=== PATIENT | female | born 1995 | race Two or more races ===

== ENCOUNTER 2017-10-15 18:57 | Emergency (ER) | payer OTHER ==
[2017-10-15 19:12] VITALS: BMI 15.7
--- NOTE | 2017-10-15 19:12 | PDOC ---
Rapid Medical Evaluation Chief Complaint: Vaginal Bleeding Time Seen by Provider: 10/15/17 19:11 Medical Evaluation: Allergies Allergy/AdvReac Type Severity Reaction Status Date / Time No Known Allergies Allergy Verified 10/15/17 19:10 10/15/17 19:11 The patient presents with a chief complaint of: bleeding I have performed a brief in-person evaluation of this patient. Pertinent physical exam findings: vss I have ordered the following: labs The patient will proceed to the ED for further evaluation. 10/15/17 19:15
--- NOTE | 2017-10-15 19:48 | PDOC ---
History of Present Illness - General Chief Complaint: Vaginal Bleeding Stated Complaint: VAGINAL BLEEDING (12 WKS ) Time Seen by Provider: 10/15/17 19:11 - History of Present Illness Initial Comments: 10/15/17 19:47 22 yo at 13 wga w/ no significant pmh who p/w vaginal bleeding in . Pt. reports acute onset of dark, mucoid, vaginal discharge this evening. Also endorsed dull, migrating, lower abdominal discomfort ( now resolved), at time of vaginal discharge. No identifiable triggers or alleviators. Denies abdominal trauma. 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 Giovana Monaco with UTI ( 10/13/17). Antibitoics sent to pharmacy. Denies urinary complaints, or hematuria. Denies F/C, CP, cough, SOB, diarrhea, constipation, lightheadedness, weakness, sensory changes. Denies tobacco or alcohol use. Past History - Past Medical History Allergies/Adverse Reactions: Allergies Allergy/AdvReac Type Severity Reaction Status Date / Time No Known Allergies Allergy Verified 10/15/17 19:10 Home Medications: Ambulatory Orders NK [No Known Home Medication] 10/15/17 COPD: No - Suicide/Smoking/Psychosocial Hx Smoking History: Never smoked Review of Systems - Review of Systems Comments:: 10/15/17 19:47 GENERAL/CONSTITUTIONAL: No fever or chills. No weakness. HEAD, EYES, EARS, NOSE AND THROAT: No change in vision. No ear pain or discharge. No sore throat. CARDIOVASCULAR: No chest pain or shortness of breath RESPIRATORY: No cough, wheezing, or hemoptysis. GASTROINTESTINAL: No nausea, vomiting, diarrhea or constipation. GENITOURINARY: + Vaginal discharge. No dysuria, frequency, or change in urination. MUSCULOSKELETAL: No joint or muscle swelling or pain. No neck or back pain. SKIN: No rash NEUROLOGIC: No headache, vertigo, loss of consciousness, or change in strength/ sensation. ENDOCRINE: No increased thirst. No abnormal weight change HEMATOLOGIC/LYMPHATIC: No anemia, easy bleeding, or history of blood clots. ALLERGIC/IMMUNOLOGIC: No hives or skin allergy. *Physical Exam - Vital Signs Last Vital Signs Temp Pulse Resp BP Pulse Ox 98.2 F 83 18 104/70 98 10/15/17 19:10 10/15/17 19:10 10/15/17 19:10 10/15/17 19:10 10/15/17 19:10 - Physical Exam Comments: 10/15/17 19:47 GENERAL: Awake, alert, and fully oriented, in no acute distress HEAD: No signs of trauma, normocephalic, atraumatic EYES: PERRLA, EOMI, sclera anicteric, conjunctiva clear ENT:Hearing grossly normal, nares patent, oropharynx clear without exudates. Moist mucosa NECK: Normal ROM, supple, no lymphadenopathy, JVD, or masses LUNGS: No distress, speaks full sentences, clear to auscultation bilaterally HEART: Regular rate and rhythm, normal S1 and S2, no murmurs, rubs or gallops, peripheral pulses normal and equal bilaterally. ABDOMEN: Soft, nontender, normoactive bowel sounds. No guarding, no rebound, no rigidity. No masses. Neg CVA pr suprapubic ttp. : Normal appearing external genitalia. Absent blood in vaginal vault. Large volume milky white-maynard discharge. Cervical os closed and non erythematous. Absent CMT on BM. EXTREMITIES : Normal inspection, Normal range of motion, no edema. No clubbing or cyanosis. SKIN: Warm, Dry, normal turgor, no rashes or lesions noted ED Treatment Course - LABORATORY CBC & Chemistry Diagram: 10/15/17 19:40 Medical Decision Making - Medical Decision Making 10/15/17 20:09 22 yo at 13 wga with no significant pmh who presents acute onset of dark, mucoid, vaginal discharge this evening asx. w/ dull, migrating, lower abdominal discomfort ( now resolved). . No identifiable triggers or alleviators. Denies abdominal trauma. Denies F/C, CP, cough, SOB, diarrhea, constipation, urinary complaints, hematuria, BPR, lightheadedness, weakness, sensory changes. Recently seen at [facility] ORGANIZATIONAL PSYCHOLOGIST Dr. Giovana Monaco with UTI ( 10/13/17). Physical exam with milky maynard-white discharge in vaginal vault. Cervical os closed. HDS. Will assess for causes of vaginal bleeding and abdominal pain in . Will consider placenta previa, ectopic , threatened . Pt. with s/s of BV. ED Course: CBC, T&S, UA, BHCG Transvaginal U/S 10/15/17 20:58 HC.2 CBC: Unremarkable 10/15/17 21:49 Tranvaginal U/S: Live intrauterine of 13w3d. Keflex in ED. Will d/c with return precautions and advised f/u with Gizzard Puller. *DC/Admit/Observation/Transfer Diagnosis at time of Disposition: Vaginal discharge during in second trimester - Discharge Dispostion Disposition: HOME Condition at time of disposition: Stable Admit: No - Referrals Referrals: Jacinda Akhtar [Primary Care Provider] - - Patient Instructions Additional Instructions: Please return to the emergency department with any new or worsening symptoms or concerns. Please follow up with your primary care physician within 72 hours. - Post Discharge Activity - Attestations Physician Attestion: 10/15/17 19:47 I attest to the information provided in this note.
--- NOTE | 2017-10-15 20:13 | PDOC ---
Attending Attestation - HPI HPI: 10/15/17 20:18 The patient is a 13 weeks 22 year old female, with no significant past medical history, who presents to the emergency department with, vaginal bleeding for approx. one day. The patient states that yesterday evening she experienced a dark mucoid vaginal discharge and reports a lower abdominal discomfort. 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 The patient denies any recent falls or trauma. She denies recent fevers, chills, headache or dizziness. She denies recent nausea, vomit, diarrhea or constipation. She denies recent dysuria, frequency, urgency or hematuria. She denies recent chest pain or shortness of breath. Allergies: NKA Documentation prepared by Abrahan Mckenna, acting as biomedical equipment tech for Alvin Keita DO. <Abrahan Mckenna - Last Filed: 10/15/17 20:18> - Resident Resident Name: Shola Solis - ED Attending Attestation I have performed the following: I have examined & evaluated the patient, The case was reviewed & discussed with the resident, I agree w/resident's findings & plan, Exceptions are as noted - Physicial Exam PE: 10/15/17 21:43 *Physical Exam General Appearance: Yes: Appropriately Dressed. No: Apparent Distress, Intoxicated HEENT: positive: EOMI, DUYEN, Normal ENT Inspection, Normal Voice, TMs Normal, Pharynx Normal. negative: Pale Conjunctivae, Photophobia, Scleral Icterus (R), Scleral Icterus (L) Neck: positive: Trachea midline, Normal Thyroid, Supple. negative: Tender, Rigid, Carotid bruit, Stridor, Lymphadenopathy (R), Lymphadenopathy (L), Thyromegaly Respiratory/Chest: positive: Lungs Clear, Normal Breath Sounds. negative: Chest Tender, Respiratory Distress, Accessory Muscle Use, Labored Respiration, RES, Crackles, Rales, Rhonchi, Stridor, Wheezing, Dullness Cardiovascular: positive: Regular Rhythm, Regular Rate, S1, S2. negative: Edema , JVD, Murmur, Bradycardia, Tachycardia Vascular Pulses: Dorsalis-Pedis (R): 2+, Doralis-Pedis (L): 2+ Gastrointestinal/Abdominal: positive: Normal Bowel Sounds, Flat, Soft. negative : Tender, Organomegaly, Pulsatile Mass, Increased Bowel Sounds, Decreased BS, Distended, Guarding, Rebound, Hernia, Hepatomegaly, Spleenomegaly Lymphatic: negative: Adenopathy, Tenderness Musculoskeletal: positive: Normal Inspection. negative: CVA Tenderness, Decreased Range of Motion Extremity: positive: Normal Capillary Refill, Normal Inspection, Normal Range of Motion, Pelvis Stable. negative: Tender, Pedal Edema, Swelling, Erythema Integumentary: positive: Normal Color, Dry, Warm. negative: Cyanotic, Erythema , Jaundice, Rash Neurologic: positive: bar roller II-XII NML intact, Fully Oriented, Alert, Normal Mood/ Affect, Motor Strength 5/5. negative: EOM Palsy, Facial Droop, Sensory Deficit - Medical Decision Making 10/16/17 19:25 Pt treated and released <Alvin Keita - Last Filed: 10/16/17 19:27> Discharge Disposition <Abrahan Mckenna - Last Filed: 10/15/17 20:18> - Discharge Dispostion Admit: No <Alvin Keita - Last Filed: 10/16/17 19:27> - Diagnosis UTI (urinary tract infection), Vaginal discharge during in second trimester Qualifiers: Weeks of gestation: 13 weeks Qualified Code(s): Z3A.13 - 13 weeks gestation of - Discharge Dispostion Disposition: HOME Condition at time of disposition: Stable - Referrals Referrals: Jacinda Akhtar [Primary Care Provider] - - Patient Instructions Additional Instructions: Please return to the emergency department with any new or worsening symptoms or concerns. Please follow up with your primary care physician within 72 hours. TAke antibiotic you have been prescribed. Follow up with your doctor - Post Discharge Activity
[2017-10-15 20:19] LABS: BASO % 0.4 % (0-2.0); EOS % 1.8 % (0-4.5); HEMATOCRIT 35.9 % (32.4-45.2); HEMOGLOBIN 12.7 GM/dL (10.7-15.3); LYMPH % 25.3 % (8-40); MCH 31.4 pg (25.7-33.7); MCHC 35.5 g/dl (32.0-36.0); MEAN CELL VOLUME 88.7 fl (80-96); MEAN PLT VOLUME 9.1 fl (7.5-11.1); MONO % 6.1 % (3.8-10.2); NEUT % 66.4 % (42.8-82.8); PLATELET COUNT 224 K/MM3 (134-434); RBC 4.05 M/mm3 (3.60-5.2)
[2017-10-15 20:20] LABS: URINE APPEARANCE SLCLOUDY; URINE BILIRUBIN NEGATIVE (NEGATIVE); URINE BLOOD 1+ (NEGATIVE); URINE COLOR LTYELLOW; URINE GLUCOSE (UA) NEGATIVE (NEGATIVE); URINE KETONE NEGATIVE (NEGATIVE); URINE NITRITE NEGATIVE (NEGATIVE); URINE PROTEIN NEGATIVE (NEGATIVE); URINE UROBILINOGEN NEGATIVE mg/dL (0.2-1.0)
[2017-10-15 20:35] LABS: URINE LEUK ESTERASE 2+ (NEGATIVE)
[2017-10-15 20:53] LABS: EPI CELLS MODERATE /HPF (FEW); URINE BACTERIA FEW /hpf (NONE SEEN); URINE HYALINE CAST 1 /lpf; URINE MUCUS RARE
[2017-10-15] MEDS ORDERED: CEPHALEXIN MONOHYDRATE 500 MG CAPSULE (UD) PO ONE (21:50)
[2017-10-15] MEDS ORDERED: CEPHALEXIN MONOHYDRATE 250 MG CAPSULE (FP) ONE (21:59)
[2017-10-15 22:11] VITALS: BP 110/72; PULSE 84; TEMP 98
== END 2017-10-15 22:11 | disposition home or self-care (01) ==
LOC: JER 18:57
DX: O26.891 Other specified pregnancy related conditions, first trimester (principal); Z3A.13 13 weeks gestation of pregnancy; N89.8 Other specified noninflammatory disorders of vagina
CPT/HCPCS: 36415; 76801-TC; 81003; 81015; 84702; 85025; 86850; 86900; 86901; 99283-25

== ENCOUNTER 2018-02-08 18:04 | Emergency (ER) | payer OTHER ==
[2018-02-08 18:18] VITALS: BP 101/65; PULSE 100; TEMP 98.4; BMI 23.8
--- NOTE | 2018-02-08 18:52 | PDOC ---
History of Present Illness - General Chief Complaint: Bite Stated Complaint: ALLERGIC REACTION (7 MONTHS ) Time Seen by Provider: 02/08/18 18:26 History Source: Patient, Spouse Exam Limitations: Clinical Condition - History of Present Illness Initial Comments: 02/08/18 18:46 Patient 7 months present with with complains of itchy red rash o b/l upper and lower extremities which she believes from mosquito bite. Patient report taking claritin but itching and redness still persists Timing/Duration: other (2 days) Severity: mild Modifying Factors: worse with: other (scratching ) Associated Symptoms: reports: rash. denies: fever/chills, headaches, malaise Aspirin Received prior to arrival: Yes: no aspirin today Past History - Past Medical History Allergies/Adverse Reactions: Allergies Allergy/AdvReac Type Severity Reaction Status Date / Time No Known Allergies Allergy Verified 02/08/18 18:16 Home Medications: Ambulatory Orders Hydrocortisone 2.5% Topical Cr [Anusol-Hc -] 1 applic TP BID PRN 7 Days #1 tube 02/08/18 COPD: No - Suicide/Smoking/Psychosocial Hx Smoking History: Never smoked Have you smoked in the past 12 months: No Information on smoking cessation initiated: No Hx Alcohol Use: No Drug/Substance Use Hx: No Substance Use Type: None Review of Systems - Review of Systems Able to Perform ROS?: Yes Is the patient limited Slovenian proficient: No Constitutional: No: Chills, Diaphoresis, Fever, Loss of Appetite, Malaise, Night Sweats, Weakness, Weight Stable, Unintentional Wgt. Loss, Unexplained wgt Loss, Other HEENTM: No: Eye Pain, Blurred Vision, Tearing, Recent change in vision, Double Vision, Cataracts, Ear Pain, Ocular Prothesis, Ear Discharge, Nose Pain, Nose Congestion, Tinnitus, Nose Bleeding, Hearing Loss, Throat Pain, Throat Swelling , Mouth Pain, Dental Problems, Difficulty Swallowing, Mouth Swelling, Other Respiratory: No: Cough, Orthopnea, Shortness of Breath, SOB with Exertion, SOB at Rest, Stridor, Wheezing, Productive cough, Hemoptysis, Other Cardiac (ROS): No: Chest Pain, Edema, Irregular Heart Rate, Lightheadedness, Palpitations, Syncope, Chest Tightness, Other ABD/GI: No: Symptoms Reported Musculoskeletal: No: Back Pain, Gout, Joint Pain, Joint Swelling, Muscle Pain, Muscle Weakness, Neck Pain, Joint Stiffness, Other Integumentary: Yes: Pruritus (to rash areas), Rash (b/l arms and lower legs) Neurological: No: Headache, Numbness, Paresthesia, Pre-Existing Deficit, Seizure , Tingling, Tremors, Weakness, Unsteady Gait, Ataxia, Dizziness, Other Psychiatric: No: Anxiety, Depression, Frequent Crying, Stressors, Sleep Pattern Change, Emotional Problems, Mood Swings, Change in Appetite, Other Hematologic/Lymphatic: No: Anemia, Blood Clots, Easy Bleeding, Easy Bruising, Bleeding Diathesis, Lymph Node Abnormalities, Swollen Glands, Other All Other Systems: Reviewed and Negative *Physical Exam - Vital Signs Last Vital Signs Temp Pulse Resp BP Pulse Ox 98.4 F 100 H 16 101/65 100 02/08/18 18:16 02/08/18 18:16 02/08/18 18:16 02/08/18 18:16 02/08/18 18:16 - Physical Exam General Appearance: Yes: Nourished, Appropriately Dressed. No: Apparent Distress HEENT: positive: DUYEN, Normal ENT Inspection, TMs Normal, Pharynx Normal Neck: positive: Trachea midline, Supple Respiratory/Chest: positive: Lungs Clear, Normal Breath Sounds. negative: Respiratory Distress, Accessory Muscle Use Cardiovascular: positive: Regular Rhythm, Regular Rate, S1, S2 Gastrointestinal/Abdominal: positive: Normal Bowel Sounds Musculoskeletal: positive: Normal Inspection Extremity: positive: Normal Capillary Refill Integumentary: positive: Rash (multiple localized erythematous reaction to b/l arms and lower legs w/o excorations ) Neurologic: positive: equipment sterilizer II-XII NML intact, Fully Oriented, Normal Mood/Affect , Normal Response Medical Decision Making - Medical Decision Making 02/08/18 19:01 Patient 7month with localized rash with pruritus. likely allergic reaction to insect bite. stable for home discharge with topical hydrocortisone *DC/Admit/Observation/Transfer Diagnosis at time of Disposition: Dermatitis Insect bite Qualifiers: Encounter type: initial encounter Qualified Code(s): W57.XXXA - Bitten or stung by nonvenomous insect and other nonvenomous arthropods, initial encounter - Discharge Dispostion Disposition: HOME Condition at time of disposition: Good Decision to Admit order: No - Prescriptions Prescriptions: Hydrocortisone 2.5% Topical Cr [Anusol-Hc -] 1 applic TP BID PRN 7 Days #1 tube PRN Reason: rash - Referrals - Patient Instructions Printed Discharge Instructions: DI for Insect Bites and Stings Additional Instructions: apply prescribed cream twice/ day to rash . follow-up with PCP - Post Discharge Activity
== END 2018-02-08 19:00 | disposition home or self-care (01) ==
LOC: JERFT 18:04
DX: O26.893 Other specified pregnancy related conditions, third trimester (principal); L30.9 Dermatitis, unspecified; Z3A.28 28 weeks gestation of pregnancy
CPT/HCPCS: 99281-25

== ENCOUNTER 2018-09-22 14:13 | Emergency (ER) | payer SELFPAY ==
--- NOTE | 2018-09-22 14:18 | PDOC ---
Rapid Medical Evaluation Medical Evaluation: Allergies Allergy/AdvReac Type Severity Reaction Status Date / Time No Known Allergies Allergy Verified 02/08/18 18:16 I have performed a brief in-person evaluation of this patient. The patient presents with a chief complaint of: No sig pmh; RLQ abd pain from yesterday with nausea and constipation; had small BM today. Denies vomiting, diarrhea, urinary complaints. Denies prior abd surgeries Pertinent physical exam findings: +TTP along RLQ I have ordered the following: Labs The patient will proceed to the ED for further evaluation. 09/22/18 14:15 Discharge Disposition - Discharge Dispostion Condition at time of disposition: Stable - Referrals - Patient Instructions - Post Discharge Activity
[2018-09-22 14:19] VITALS: BP 127/86; PULSE 104; TEMP 98.1; BMI 19.2
[2018-09-22 14:41] LABS: BASO % 0.5 % (0-2.0); EOS % 1.1 % (0-4.5); HEMOGLOBIN 14.9 GM/dL (10.7-15.3); LYMPH % 12.7 % (8-40); MCH 31.8 pg (25.7-33.7); MCHC 35.5 g/dl (32.0-36.0); MEAN CELL VOLUME 89.5 fl (80-96); MEAN PLT VOLUME 8.9 fl (7.5-11.1); MONO % 8.8 % (3.8-10.2); NEUT % 76.9 % (42.8-82.8); PLATELET COUNT 222 K/MM3 (134-434); WHITE BLOOD COUNT 6.9 K/mm3 (4.0-10.0)
[2018-09-22 14:46] LABS: URINE APPEARANCE CLEAR; URINE BILIRUBIN NEGATIVE (<2.0 mg/dL); URINE COLOR LTYELLOW; URINE GLUCOSE (UA) NEGATIVE (NEGATIVE); URINE KETONE NEGATIVE (NEGATIVE); URINE LEUK ESTERASE NEGATIVE (NEGATIVE); URINE NITRITE NEGATIVE (NEGATIVE); URINE PROTEIN NEGATIVE (NEGATIVE); URINE UROBILINOGEN NEGATIVE mg/dL (0.2-1.0)
[2018-09-22 15:05] LABS: HCG,QUALITATIVE URINE Negative
[2018-09-22 15:19] LABS: ALBUMIN 4.4 g/dl (3.4-5.0); ALK PHOS 83 U/L (45-117); ANION GAP 7 MMOL/L (8-16); BILIRUBIN,TOTAL 0.6 mg/dL (0.2-1); BLOOD UREA NITROGEN 10 mg/dL (7-18); CALCIUM 9.1 mg/dL (8.5-10.1); CHLORIDE 103 mmol/L (98-107); CO2 28 mmol/L (21-32); CREATININE 0.6 mg/dL (0.55-1.3); GLUCOSE,RANDOM 83 mg/dL (74-106); POTASSIUM 3.9 mmol/L (3.5-5.1); SGOT/AST 22 U/L (15-37); SGPT/ALT 18 U/L (13-61); SODIUM 138 mmol/L (136-145); TOT PROT 8.8 g/dl (6.4-8.2)
[2018-09-22] MEDS ORDERED: ACETAMINOPHEN 1000 MG/100 ML VIAL (NON FORMULARY) IVPB ONE (17:41)
[2018-09-22] MEDS ORDERED: SODIUM CHLORIDE 1,000 ML IV STA (17:41)
[2018-09-22] MEDS ORDERED: ONDANSETRON 4 MG/2 ML VIAL IVPUSH ONE (17:41)
[2018-09-22] MEDS ORDERED: ACETAMINOPHEN INJECTION 100 ML IVPB ONE (18:12)
[2018-09-22] MEDS ORDERED: ONDANSETRON 4 MG/2 ML VIAL ONE (18:12)
--- NOTE | 2018-09-22 19:42 | PDOC ---
History of Present Illness - General Chief Complaint: Pain, Acute Stated Complaint: RT LOWER ABD PAIN Time Seen by Provider: 09/22/18 14:15 History Source: Patient Exam Limitations: No Limitations - History of Present Illness Travel History: No Initial Comments: 09/22/18 17:52 23-year-old female with no past medical history presents to ED with complaints of 3 days of constipation associated lower abdominal cramping and nausea with decreased appetite. Patient states is currently nursing a 5-month-old but denies any fever, chills urinary complaints or recent illness. Patient states has not had her menses since childbirth secondary to nursing but denies feelings of Timing/Duration: reports: constant Quality: reports: mild, cramping Abdominal Pain Onset Location: reports: RLQ, LLQ, suprapubic (mid) Pain Radiation: reports: no radiation Activities at Onset: reports: none Aggravating Factors: improves with: None Alleviating Factors: improves with: None Past History - Travel Traveled outside of the country in the last 30 days: No Close contact w/someone who was outside of country & ill: No - Past Medical History Allergies/Adverse Reactions: Allergies Allergy/AdvReac Type Severity Reaction Status Date / Time No Known Allergies Allergy Verified 02/08/18 18:16 Home Medications: Ambulatory Orders Hydrocortisone 2.5% Topical Cr [Anusol-Hc -] 1 applic TP BID PRN 7 Days #1 tube 02/08/18 COPD: No - Immunization History Immunization Up to Date: No - Suicide/Smoking/Psychosocial Hx Smoking History: Never smoked Have you smoked in the past 12 months: No Information on smoking cessation initiated: No Hx Alcohol Use: No Drug/Substance Use Hx: No Substance Use Type: None Patient Lives Alone: No Lives with/in: spouse/SO Review of Systems - Review of Systems Able to Perform ROS?: No Is the patient limited Romanian proficient: No Constitutional: No: Symptoms Reported HEENTM: No: Symptoms Reported Respiratory: No: Symptoms reported Cardiac (ROS): No: Symptoms Reported ABD/GI: Yes: Constipated (x 3 days), Nausea, Poor Appetite, Vomiting, Abdominal cramping. No: Poor Fluid Intake : No: Symptoms Reported Musculoskeletal: No: Symptoms Reported Integumentary: No: Symptoms Reported Neurological: No: Headache, Weakness Endocrine: No: Symptoms Reported Hematologic/Lymphatic: No: Symptoms Reported *Physical Exam - Vital Signs Last Vital Signs Temp Pulse Resp BP Pulse Ox 98.1 F 104 H 18 127/86 99 09/22/18 14:16 09/22/18 14:16 09/22/18 14:16 09/22/18 14:16 09/22/18 14:16 - Physical Exam General Appearance: Yes: Nourished, Appropriately Dressed. No: Apparent Distress HEENT: negative: Pale Conjunctivae Neck: positive: Normal Thyroid. negative: Supple Respiratory/Chest: positive: Lungs Clear, Normal Breath Sounds. negative: Respiratory Distress, Accessory Muscle Use Cardiovascular: positive: Regular Rhythm, Tachycardia. negative: Murmur Gastrointestinal/Abdominal: positive: Normal Bowel Sounds, Soft, Tenderness ( mid suprapubic). negative: Distended, Guarding, Rebound, Hernia, Mass Extremity: positive: Normal Capillary Refill. negative: Pedal Edema Integumentary: positive: Normal Color, Warm, Moist Neurologic: positive: Motor Strength 5/5 (ambulatory) Moderate Sedation - Procedure Monitoring Vital Signs: Procedure Monitoring Vital Signs Temperature 98.1 F 09/22/18 14:16 Pulse Rate 104 H 09/22/18 14:16 Respiratory Rate 18 09/22/18 14:16 Blood Pressure 127/86 09/22/18 14:16 O2 Sat by Pulse Oximetry (%) 99 09/22/18 14:16 ED Treatment Course - LABORATORY CBC & Chemistry Diagram: 09/22/18 14:30 09/22/18 14:30 - ADDITIONAL ORDERS Additional order review: Laboratory Results 09/22/18 09/22/18 14:30 14:30 Sodium 138 Potassium 3.9 Chloride 103 Carbon Dioxide 28 Anion Gap 7 L BUN 10 Creatinine 0.6 Creat Clearance w eGFR > 60 Random Glucose 83 Calcium 9.1 Total Bilirubin 0.6 AST 22 ALT 18 Alkaline Phosphatase 83 Total Protein 8.8 H Albumin 4.4 Urine Color Ltyellow Urine Appearance Clear Urine pH 5.0 D Ur Specific [place] 1.018 Urine Protein Negative Urine Glucose (UA) Negative Urine Ketones Negative Urine Blood Negative Urine Nitrite Negative Urine Bilirubin Negative Urine Urobilinogen Negative Ur Leukocyte Esterase Negative Urine HCG, Qual Negative 09/22/18 14:30 RBC 4.70 MCV 89.5 MCHC 35.5 RDW 13.0 MPV 8.9 Neutrophils % 76.9 Lymphocytes % 12.7 D Monocytes % 8.8 Eosinophils % 1.1 Basophils % 0.5 - RADIOLOGY Radiology Studies Ordered: Category Date Time Status PELVIC / BLADDER US [US] Stat Ultrasound 09/22/18 17:41 Ordered TRANSVAGINAL ULTRASOUND US [US] Stat Ultrasound 09/22/18 17:41 Ordered - Medications Given in the ED: ED Medications Discontinued Medications Generic Name Dose Route Start Last Admin Trade Name Nila PRN Reason Stop Dose Admin Acetaminophen 1,000 mg 09/22/18 17:41 09/22/18 18:19 Ofirmev Injection - IVPB 09/22/18 17:42 1,000 mg ONCE ONE Administration Sodium Chloride 1,000 mls @ 1,000 mls/hr 09/22/18 17:41 09/22/18 18:19 Normal Saline - IV 09/22/18 18:40 1,000 mls/hr ASDIR STA Administration Ondansetron HCl 4 mg 09/22/18 17:41 09/22/18 18:19 Zofran Injection IVPUSH 09/22/18 17:42 4 mg ONCE ONE Administration Medical Decision Making - Medical Decision Making 09/22/18 17:54 Chief complaint: constipation 3 days nausea with one episode of vomiting along with poor by mouth intake and lower abdominal cramping. Exam : suprapubic tenderness slightly tachycardic upon arrival no right lower quadrant tenderness Plan: Labs, urine, ultrasound IV fluids and IV Tylenol along with Zofran 09/22/18 19:55 09/22/18 19:55 Laboratory Tests 09/22/18 09/22/18 09/22/18 14:30 14:30 14:30 WBC 6.9 Hgb 14.9 Hct 42.0 D Neutrophils % 76.9 Sodium 138 Potassium 3.9 Chloride 103 Carbon Dioxide 28 Anion Gap 7 L BUN 10 Creatinine 0.6 Random Glucose 83 Calcium 9.1 Total Bilirubin 0.6 AST 22 ALT 18 Alkaline Phosphatase 83 Total Protein 8.8 H Albumin 4.4 Urine Nitrite Negative Urine Bilirubin Negative Urine HCG, Qual Negative 09/22/18 19:56 Ultrasound shows unremarkable several subcentimeter follicles bilaterally. No evidence of ovarian torsion noted there is no free intraperitoneal fluid with visualized lower pelvis. patient states fbetter and requesting to eat. Patient states feeling better and requesting to eat. Patient be discharged home with Zofran and strict instructions to return to ED if she develops fever, severe abdominal pain greater in the right lower quadrant or inability to eat *DC/Admit/Observation/Transfer Diagnosis at time of Disposition: Lower abdominal pain - Discharge Dispostion Disposition: HOME Condition at time of disposition: Improved - Referrals - Patient Instructions Printed Discharge Instructions: DI for Abdominal Pain-Adult Additional Instructions: at this time your labs urine and ultrasound were negative for acute findings. I recommend taking Zofran for nausea and Motrin or Tylenol for discomfort. I also recommended return to ED if you develop severe abdominal pain, vomiting, fever or inability to tolerate by mouth - Post Discharge Activity
== END 2018-09-22 21:22 | disposition home or self-care (01) ==
LOC: JER 14:13
PROC: 3E033NZ Introduction of Analgesics, Hypnotics, Sedatives into Peripheral Vein, Percutaneous Approach (ICD-10-PCS; principal; 2018-09-22)
PROC: 3E033GC Introduction of Other Therapeutic Substance into Peripheral Vein, Percutaneous Approach (ICD-10-PCS; 2018-09-22)
DX: R10.30 Lower abdominal pain, unspecified (principal)
CPT/HCPCS: 36415; 76830-TC; 76856-TC; 80053; 81003; 84703; 85025; 99283-25; J0131; J7030

== ENCOUNTER 2018-11-14 13:18 | Emergency (ER) | payer OTHER ==
[2018-11-14 13:24] VITALS: BP 140/74; TEMP 97.8; BMI 18.9
--- NOTE | 2018-11-14 13:54 | PDOC ---
History of Present Illness - General History Source: Patient - History of Present Illness Timing/Duration: reports: changing over time <Manav Humphreys - Last Filed: 11/14/18 14:51> <Yuliya Cabral - Last Filed: 11/14/18 18:42> - General Chief Complaint: Vaginal Bleeding Stated Complaint: VAGINAL BLEEDING Time Seen by Provider: 11/14/18 13:48 Past History - Past Medical History COPD: No - Immunization History Immunization Up to Date: No - Suicide/Smoking/Psychosocial Hx Smoking History: Never smoked Have you smoked in the past 12 months: No Hx Alcohol Use: No Drug/Substance Use Hx: No Substance Use Type: None <Manav Humphreys - Last Filed: 11/14/18 14:51> <Yuliya Cabral - Last Filed: 11/14/18 18:42> - Past Medical History Allergies/Adverse Reactions: Allergies Allergy/AdvReac Type Severity Reaction Status Date / Time No Known Allergies Allergy Verified 11/14/18 13:23 Home Medications: Ambulatory Orders Hydrocortisone 2.5% Topical Cr [Anusol-Hc -] 1 applic TP BID PRN 7 Days #1 tube 02/08/18 Ondansetron HCl [Zofran] 4 mg PO TID PRN #12 tablet 09/22/18 Review of Systems - Review of Systems Constitutional: No: Chills, Fever, Weakness ABD/GI: No: Nausea, Vomiting, Abdominal cramping : No: Dysuria, Flank Pain <Manav Humphreys - Last Filed: 11/14/18 14:51> *Physical Exam - Vital Signs Last Vital Signs Temp Pulse Resp BP Pulse Ox 97.8 F 92 H 18 140/74 98 11/14/18 13:19 11/14/18 13:19 11/14/18 13:19 11/14/18 13:19 11/14/18 13:19 - Physical Exam General Appearance: Yes: Appropriately Dressed. No: Apparent Distress HEENT: positive: Normal Voice Neck: positive: Supple Respiratory/Chest: negative: Respiratory Distress Gastrointestinal/Abdominal: positive: Soft. negative: Tender Musculoskeletal: negative: CVA Tenderness Integumentary: positive: Dry, Warm Neurologic: positive: Fully Oriented, Alert, Normal Mood/Affect <aMnav Humphreys Last Filed: 11/14/18 14:51> - Vital Signs Last Vital Signs Temp Pulse Resp BP Pulse Ox 97.8 F 86 18 140/74 98 11/14/18 13:19 11/14/18 15:01 11/14/18 13:19 11/14/18 13:19 11/14/18 13:19 <Yuliya Cabral - Last Filed: 11/14/18 18:42> ED Treatment Course - ADDITIONAL ORDERS Additional order review: Laboratory Results 11/14/18 14:14 Urine HCG, Qual Negative <Yuliya Cabral - Last Filed: 11/14/18 18:42> Medical Decision Making - Medical Decision Making 11/14/18 14:52 23-year-old female, s/p 6 months ago w/ placement of IUD on 10/15/18 in [place] where patient resides, currently visiting the [facility] on a student visa and here complaining that her period came early 5 days ago. Was bleeding heavily initially but not now. No abdominal pain, nausea, vomiting, fever, chills or dysuria. See exam Irregular vag bleed S/p copper IUD placement 1 month Stable and well nancy w/ benign abd Upreg neg here -dc w/ [facility] <PetrManav - Last Filed: 11/14/18 14:51> *DC/Admit/Observation/Transfer <PetrManav - Last Filed: 11/14/18 14:51> - Attestations Physician Attestion: I reviewed the case with the mid-level practitioner and agree with the mid- level practitioner's assessment, diagnosis and disposition. <Yuliya Cabral - Last Filed: 11/14/18 18:42> Diagnosis at time of Disposition: Irregular bleeding - Discharge Dispostion Disposition: HOME Condition at time of disposition: Good - Referrals Referrals: Jacinda Akhtar [Primary Care Provider] - - Patient Instructions Additional Instructions: Copper IUD's can have side effects for the first 2-3 months after placement. Common side effects are mucous appearing discharge and irregular, heavier and longer periods. These side effects usually diminish after the first several months. If the adjustment period lasts longer, please follow-up with your [facility] for further evaluation - Post Discharge Activity
[2018-11-14 15:01] VITALS: PULSE 86
== END 2018-11-14 15:13 | disposition home or self-care (01) ==
LOC: JER 13:18
DX: N92.6 Irregular menstruation, unspecified (principal)
CPT/HCPCS: 84703; 99282-25

== ENCOUNTER 2020-01-18 17:57 | Emergency (ER) | payer OTHER ==
[2020-01-18 18:04] VITALS: BP 107/72; PULSE 95; BMI 20.8
[2020-01-18] MEDS ORDERED: IBUPROFEN 400 MG TABLET (FP) PO ONE ×2 (18:20→18:21)
== END 2020-01-18 18:25 | disposition home or self-care (01) ==
LOC: JERFT 17:57
DX: S90.122A Contusion of left lesser toe(s) without damage to nail, initial encounter (principal); W22.8XXA Striking against or struck by other objects, initial encounter
CPT/HCPCS: 73630-TC-LT; 99283-25

== ENCOUNTER 2020-03-30 01:53 | Emergency (ER) | payer OTHER ==
--- NOTE | 2020-03-30 02:10 | PDOC ---
History of Present Illness - General Chief Complaint: Psychiatric Stated Complaint: PANIC ATTACK Time Seen by Provider: 03/30/20 02:09 History Source: Patient Exam Limitations: No Limitations - History of Present Illness Initial Comments: 03/30/20 02:27 25y previously healthy F presenting w sudden onset SOB, anxiety, upper back tightness 1hr ago while arguing with . Also stressed out because 2yr daughter kept her up for the last 3 days. Never experienced this before. Not on OCP, no recent travel. Denies fever, n/v, cough, chest pain, leg swelling. Past History - Medical History Allergies/Adverse Reactions: Allergies Allergy/AdvReac Type Severity Reaction Status Date / Time No Known Allergies Allergy Verified 03/30/20 02:12 Home Medications: Ambulatory Orders Hydrocortisone 2.5% Topical Cr [Anusol-Hc -] 1 applic TP BID PRN 7 Days #1 tube 02/08/18 Ondansetron HCl [Zofran] 4 mg PO TID PRN #12 tablet 09/22/18 Docusate Sodium [Colace] 100 mg PO BID #30 capsule 12/29/19 Ibuprofen 600 mg PO Q8H PRN #20 tablet 01/18/20 COPD: No - Immunization History Immunization Up to Date: No - Psycho-Social/Smoking History Smoking History: Never smoked Have you smoked in the past 12 months: No Review of Systems - Review of Systems Constitutional: No: Chills, Fever HEENTM: No: Eye Pain, Nose Pain Respiratory: Yes: Shortness of Breath. No: Cough Cardiac (ROS): No: Chest Pain, Lightheadedness ABD/GI: No: Nausea, Vomiting : No: Burning, Flank Pain Musculoskeletal: No: Back Pain, Joint Pain Integumentary: No: Bruising, Dryness Neurological: No: Headache, Seizure Psychiatric: Yes: Anxiety, Stressors. No: Depression Endocrine: No: Intolerance to Cold, Intolerance to Heat Hematologic/Lymphatic: No: Anemia, Blood Clots *Physical Exam - Physical Exam General Appearance: Yes: Nourished, Appropriately Dressed, Mild Distress HEENT: positive: EOMI, DUYEN, Hearing Grossly Normal. negative: Normal Voice (anxious), Scleral Icterus (R), Scleral Icterus (L) Respiratory/Chest: positive: Lungs Clear, Normal Breath Sounds. negative: Chest Tender, Respiratory Distress Cardiovascular: positive: Regular Rhythm, Regular Rate, S1, S2. negative: Murmur Gastrointestinal/Abdominal: positive: Normal Bowel Sounds, Flat, Soft. negati ve: Tender, Organomegaly Integumentary: positive: Normal Color, Warm Neurologic: positive: Fully Oriented, Alert, Normal Response, Motor Strength 5/5, Responsive. negative: Normal Mood/Affect (anxious), Facial Droop, Numbness, Confused, Disoriented Medical Decision Making - Medical Decision Making 03/30/20 03:20 EKG - NSR, HR 70, QTc 421, no ST changes --- 25y previously healthy F presenting w sudden onset SOB, anxiety, upper back tightness 1hr ago while arguing with d/t anxiety. Low concern for ACS (nonconcerning EKG) vs PE (PERC out) vs PNA (clear lungs) Pt calmed down, feels better after practicing breathing exercises DC home w PCP f/u Discharge - Discharge Information Problems reviewed: Yes Clinical Impression/Diagnosis: Anxiety Condition: Improved Disposition: HOME - Follow up/Referral - Patient Discharge Instructions Patient Printed Discharge Instructions: DI for Anxiety -- Adult Additional Instructions: Your workup did not show anything concerning Focus on breathing in through your nose and out your mouth Take tylenol if you have pain Please follow up with your primary care doctor - Post Discharge Activity
[2020-03-30 02:12] VITALS: BP 114/77; TEMP 98.1; BMI 22.4
--- NOTE | 2020-03-30 02:37 | PDOC ---
Attending Attestation - Resident Resident Name: Abel Quiros - ED Attending Attestation I have performed the following: I have examined & evaluated the patient, The case was reviewed & discussed with the resident, I agree w/resident's findings & plan - HPI HPI: 03/30/20 03:23 see resident hpi - Physicial Exam PE: 03/30/20 03:23 see resident exam - Medical Decision Making 03/30/20 03:23 25-year-old female with elevated heart rate and shortness of breath that developed while arguing with her Patient feels better in the emergency department after some sips of water Repeat heart rate is 70 with EKG normal sinus rhythm at 70 bpm will DC Discharge - Discharge Information Problems reviewed: Yes Clinical Impression/Diagnosis: Anxiety Condition: Improved Disposition: HOME - Follow up/Referral - Patient Discharge Instructions Patient Printed Discharge Instructions: DI for Anxiety -- Adult Additional Instructions: Your workup did not show anything concerning Focus on breathing in through your nose and out your mouth Take tylenol if you have pain Please follow up with your primary care doctor - Post Discharge Activity
[2020-03-30 03:19] VITALS: PULSE 70
--- NOTE | 2020-03-30 15:28 | EKG ---
Test Reason : Blood Pressure : / mmHG Vent. Rate : 070 BPM Atrial Rate : 070 BPM P-R Int : 122 ms QRS Dur : 080 ms QT Int : 390 ms P-R-T Axes : 037 049 027 degrees QTc Int : 421 ms NORMAL SINUS RHYTHM NORMAL ECG NO PREVIOUS ECGS AVAILABLE Confirmed by OLIVA PHILIP MD ([id number]) on 03/30/2020 3:28:02 PM Referred By: Confirmed By:OLIVA PHILIP MD
== END 2020-03-30 03:23 | disposition home or self-care (01) ==
LOC: JER 01:53
DX: F41.9 Anxiety disorder, unspecified (principal)
CPT/HCPCS: 93005; 93010; 99283-25

== ENCOUNTER 2020-10-29 21:14 | Emergency (ER) | payer OTHER ==
[2020-10-29 21:23] VITALS: BP 104/72; PULSE 68; TEMP 98.6; BMI 23.3
[2020-10-29] MEDS ORDERED: ACETAMINOPHEN 1000 MG/100 ML VIAL (NON FORMULARY) IVPB ONE (22:45)
[2020-10-29] MEDS ORDERED: ACETAMINOPHEN INJECTION 100 ML IVPB ONE (23:00)
[2020-10-29 23:10] LABS: BASO % 0.5 % (0-2.0); EOS % 2.1 % (0-4.5); HEMOGLOBIN 13.1 GM/dL (10.7-15.3); LYMPH % 37.5 % (8-40); MCH 29.3 pg (25.7-33.7); MCHC 33.5 g/dl (32.0-36.0); MEAN CELL VOLUME 87.7 fl (80-96); MEAN PLT VOLUME 9.6 fl (7.5-11.1); MONO % 5.6 % (3.8-10.2); NEUT % 54.3 % (42.8-82.8); PLATELET COUNT 260 K/MM3 (134-434); RBC 4.45 M/mm3 (3.60-5.2); RDW 12.9 % (11.6-15.6); WHITE BLOOD COUNT 7.9 K/mm3 (4.0-10.0)
[2020-10-29 23:17] LABS: INR 0.93 (0.83-1.09); PROTHROMBIN TIME (PATIENT) 11.5 SEC (9.7-13.0)
[2020-10-29 23:19] LABS: ACTIVATED PTT 33.6 SECONDS (25.2-36.5)
[2020-10-29 23:35] LABS: POTASSIUM 3.6 mmol/L (3.5-5.1)
[2020-10-29 23:37] LABS: BLOOD UREA NITROGEN 11.8 mg/dL (7-18); CALCIUM 9.5 mg/dL (8.5-10.1)
[2020-10-29 23:41] LABS: CREATININE 0.7 mg/dL (0.55-1.3)
[2020-10-29 23:42] LABS: BILIRUBIN,TOTAL 0.3 mg/dL (0.2-1)
[2020-10-30 00:31] LABS: EPI CELLS 13 /uL (0-25.1); HYALINE CASTS 1 /uL (0-3.1); URINE APPEARANCE CLEAR; URINE BACTERIA 816 /uL (0-1359); URINE BILIRUBIN NEGATIVE (NEGATIVE); URINE COLOR YELLOW; URINE GLUCOSE (UA) NEGATIVE (NEGATIVE); URINE KETONE NEGATIVE (NEGATIVE); URINE LEUK ESTERASE 2+ (NEGATIVE); URINE NITRITE NEGATIVE (NEGATIVE); URINE PROTEIN NEGATIVE (NEGATIVE); URINE RBC 7 /uL (0-23.9); URINE UROBILINOGEN 0.2 mg/dL (0.2-1.0); URINE WBC 131 /uL (0-25.8)
[2020-10-30] MEDS ORDERED: CEFTRIAXONE 1,000 MG in DEXTROSE 5%-WATER - 50 ML IVPB ONE (00:45)
[2020-10-30] MEDS ORDERED: CEFTRIAXONE 1 GM/50 ML BAG ONE (01:03)
== END 2020-10-30 03:26 | disposition home or self-care (01) ==
LOC: JER 21:14
PROC: 3E0333Z Introduction of Anti-inflammatory into Peripheral Vein, Percutaneous Approach (ICD-10-PCS; principal; 2020-10-29)
PROC: 3E03329 Introduction of Other Anti-infective into Peripheral Vein, Percutaneous Approach (ICD-10-PCS; 2020-10-29)
DX: N30.00 Acute cystitis without hematuria (principal)
CPT/HCPCS: 36415; 74177-TC; 76817-TC; 80053; 81003; 84703; 85025; 85610; 85730; 86850; 86900; 86901; 87086; 99285-25; J0131; Q9967